=== PATIENT | female | born 1935 | race Caucasian/White ===

== ENCOUNTER → 2018-10-31 09:19 | Outpatient (CLI) | payer MEDICARE, MEDICAID, SELFPAY ==
--- NOTE | 2018-10-31 09:21 | CA_ITS ---
PROCEDURE: 2-D M-mode and color Doppler study INDICATIONS FOR THE TEST: Chest pain + COPD Heart Murmur+ Tobacco Smoking Palpitations Fatigue Syncope Edema+ Hypertension+Diabetes Mellitus+ Rheumatic Fever SOB+ZUÑIGA Obesity Hyperlipidemia+ Family History HD Additional History L RADICAL MASTECTOMY WITH EXCESSIVE SCAR TISSUE PATIENT INFORMATION HEIGHT: 62 WEIGHT:203 GENDER: Female B/P:124/83 2-D/M-MODE INTERPRETATION: 2-D MEASUREMENTS OBSERVED VALUES IN CMS Right Ventricular Dimension (RVDd) 2.3 Interventricular Septum (Thickness)(IVsd) 1.3 Left Ventricular Internal Dimensions(LVIDd) 4.5 Left Ventricular Posterior Wall (Thickness)(LVPWd) 1.2 Aortic Root 3.0 Aortic Cusp Separation 1.8 Left Atrial Dimensions (LAD) 3.5 2D 1. Technically difficult study because of the patient's factor and poor acoustic windows 2. Left atrium is mildly enlarged, left ventricle is normal size, mild concentric left ventricular hypertrophy, visually estimated ejection fraction 55% with no regional wall motion abnormality. 3. The right atrium and right ventricle are normal size and contractility. 4. The aortic valve is thickened and calcified leaflet continue to display mobility. 5. The mitral and tricuspid valve leaflets are minimally thickened. 6. The pulmonic valve is poorly visualized. 7. No significant pericardial effusion noted. DOPPLER INTERROGATION: Doppler interrogation of the aortic, mitral and tricuspid presence of mild aortic, mild mitral and moderate tricuspid regurgitation, calculated right ventricular systolic pressure is 45 mmHg consistent with moderate pulmonary hypertension, grade 1 diastolic dysfunction seen with tissue Doppler evidence of raised left atrial pressure. CONCLUSION: 1. Technically difficult study because of the patient's factor and poor acoustic windows 2. Mildly enlarged left atrium, normal left ventricular size, mild concentric left ventricular hypertrophy, visually estimated ejection fraction 55% with no regional wall motion abnormality, grade 1 diastolic dysfunction seen with tissue Doppler evidence of raised left atrial pressure. 3. Thickened and calcified aortic valve without Doppler evidence of aortic stenosis, there is mild aortic insufficiency. 4. Mild mitral and moderate tricuspid regurgitation, calculated right ventricular systolic pressure is 44 mmHg consistent with moderate pulmonary hypertension. 5. No significant pericardial effusion noted.
== END ==
PROVIDERS: PCP Family Medicine; Visit Provider Nurse Practitioner Family
DX: E78.5 Hyperlipidemia, unspecified (principal); I10 Essential (primary) hypertension; I25.10 Atherosclerotic heart disease of native coronary artery without angina pectoris; K21.9 Gastro-esophageal reflux disease without esophagitis; R01.1 Cardiac murmur, unspecified; R06.09 Other forms of dyspnea; R07.9 Chest pain, unspecified; R60.9 Edema, unspecified; Z95.0 Presence of cardiac pacemaker
CPT/HCPCS: 93306

== ENCOUNTER 2020-05-04 09:02 | Day surgery (SDC) | payer MEDICARE, MEDICAID, SELFPAY ==
[2020-05-04] VITALS (8 sets, daily range): BP systolic 131–193; BP diastolic 47–68; PULSE 64–86; RESP 16; O2SAT 96–99; BMI 36.6
--- NOTE | 2020-05-04 | IR_ITS ---
APPROVED REPORT Patient Location: Outpatient Membership Administrator: ANISHA Wismean RT (R) PROCEDURES Pocket Revision Removal of old Pacemaker Implant of Permanent Pacemaker INDICATION sinus bradycardia, normal battery depletion Informed consent was obtained prior to the procedure. COMPLICATIONS none Estimated Blood Loss: less than 20 mls TECHNIQUE 1% lidocaine with epinephrine used to anesthetize the left anterior aspect of the chest. Scalpel was used to make the initial cutaneous incision and then used to dissect down to the existing pacemaker generator. The generator was removed from the existing pocket. Digital manipulation was required along with intermittent usage of scalpel in order to revise the pocket. The leads were removed from the old generator. The new generator was screwed to the existing leads and secured into place. Electronic interrogation proved acceptable thresholds and voltage within the lead. Antibiotics were used to flush the pocket and the pacemaker was secured using 3-0 silk into the newly revised pocket. Monocryl was used to close the subcutaneous tissue and then wilder were placed on the cutaneous area in order to approximate the incision. Patient was transferred to the postop holding area in stable condition. IMPRESSION Extracted Generator Model: [employer], 5820 Extracted Generator Serial No: [id number] Implanted Generator Model: Go Kin PacksMUSTAFA DR ID-1, L311 Implanted Generator Serial No: [id number] RA Lead Model: Tendril STS Optim IS-1, 2087TC RA Lead Serial No: [id number] RV Lead Model: Tendril STS Optim IS-1, 2087TC RA Lead Serial No: [id number] Device Measurements: RA Lead: Intrinsic: 5.0mV Threshold: 0.7V@0.4ms Impedence: 349ohms RV Lead: Intrinsic: 12.0mV Threshold: 0.9V@0.4ms Impedence: 423ohms Parameters: Mode: DDDR Base/Max: 60/120ppm Conclusion Successful Pocket Revision Successful Removal of old Pacemaker Successful Implant of Permanent Pacemaker PLAN 1. Post op wound care Electronically signed by : Clay Fonseca, 05/05/2020 09:18:15
[2020-05-04 09:46] LABS: Basophils # 0.1 K/mm3 (0-0.2); Basophils % 0.6 % (0.1-2.0); Eosinophils # 0.6 K/mm3 (0.0-0.4); Eosinophils % 4.2 % (0.1-12.0); Hematocrit 38.5 % (37.0-47.0); Hemoglobin 12.9 g/dL (12.2-16.2); Lymphocytes # 2.4 K/mm3 (0.7-4.5); Lymphocytes % 18.6 % (10-50); Mean Corpuscular HGB Conc 33.5 g/dL (31.8-35.4); Mean Corpuscular Hemoglobin 28.5 pg (27.0-31.2); Mean Corpuscular Volume 85.1 fl (81-99); Mean Platelet Volume 9.4 fl (7.4-10.4); Monocytes # 0.7 K/mm3 (0.1-1.0); Monocytes % 5.3 % (1.7-9.3); Neutrophils # 9.3 K/mm3 (1.8-7.8); Neutrophils % 71.2 % (37.0-80.0); Platelet Count 203 K/mm3 (142-424); Red Blood Count 4.52 M/mm3 (4.20-5.40); Red Cell Distribution Width 14.2 % (11.5-17.5); White Blood Count 13.1 K/mm3 (4.8-10.8)
[2020-05-04 09:55] LABS: Chloride 101 mmol/L (98-107); Potassium 3.7 mmoL/L (3.5-5.1); Sodium 141 mmol/L (136-145)
[2020-05-04 09:58] LABS: Anion Gap 14.7 mEq/L (5-15); Blood Urea Nitrogen 25 mg/dl (7-17); Calcium 9.5 mg/dl (8.4-10.2); Carbon Dioxide 29 mmol/L (22.0-30.0); Creatinine Clearance Estimated 39 mL/min (50-200); Estimated Glomerular Filt Rate 33 ml/min (>60); GFR (African American) 40 ML/MIN (>60); Glucose 142 mg/dl (74-100)
[2020-05-04 10:20] LABS: Coronavirus 19 IgG Antibody Negative (Negative); Coronavirus 19 IgM Antibody Negative (Negative)
--- NOTE | 2020-05-04 12:52 | XR_ITS ---
PROCEDURE: XR CHEST PORTABLE CLINICAL HISTORY: Confirm pacemaker/AID placement COMPARISON: No exams were available for comparison FINDINGS: Bipolar pacemaker is present from right subclavian approach. The wires appear to be in good position. Normal heart size. Small hiatal hernia. Atelectasis or patchy infiltrate noted in the right lung base. Surgical clips are present in the left axilla. No evidence of pneumothorax. No acute bony abnormalities. IMPRESSION: Bipolar pacemaker present without evidence of immediate complication. Mild right basilar atelectasis or patchy infiltrate. Dictated by: Artem Ortiz MD 05/04/2020 13:45 Artem Ortiz MD in [facility] 05/04/2020 13:45
--- NOTE | 2020-05-04 14:38 | SUR.PHASEII ---
report called to maria t bae at [facility], no questions/concerns expressed at this time. pt discharged in stable condition with daughter dione at side
== END 2020-05-04 14:48 ==
PROVIDERS: PCP Family Medicine; Visit Provider Internal Medicine
DX: Z45.010 Encounter for checking and testing of cardiac pacemaker pulse generator [battery] (principal); I25.10 Atherosclerotic heart disease of native coronary artery without angina pectoris; I10 Essential (primary) hypertension; E78.5 Hyperlipidemia, unspecified; Z79.4 Long term (current) use of insulin; E11.9 Type 2 diabetes mellitus without complications; Z79.82 Long term (current) use of aspirin; Z79.899 Other long term (current) drug therapy
CPT/HCPCS: 33228; 71045; 80048; 85025; 86328; 99152; C1785